=== PATIENT | male | born 1950 | race Caucasian/White ===

== ENCOUNTER 2017-04-26 07:44 | Day surgery (SDC) | payer MEDICARE ==
[~2017-04-26 07:44] MED LIST: ACETAMINOPHEN 325 MG TAB PO; MIDAZOLAM INJ 2 MG/2 ML VIAL (J2250) As Ordered; PROPARACAINE 0.5% OPHTH SOL 15ML OD; fentaNYL 100 MCG/2 ML INJECTION (J3010) As Ordered
[2017-04-26] MEDS: OFLOXACIN 0.3 % (OCUFLOX) OPTH SOL 5ML OD (08:30)
[2017-04-26] MEDS: PHENYLEPHRINE HCL 10 % OPHTH. SOL 5ML OD (08:30)
[2017-04-26] MEDS: CYCLOPENTOLATE 2% OPHTH SOLN 2ML BTL OD (08:30)
[2017-04-26] MEDS: TROPICAMIDE 1% OPHTH SOLN 2ML OD (08:30)
[2017-04-26] MEDS: LIDOCAINE 3.5 % 1ML OPHTH TOPICAL GEL OU (08:30)
[2017-04-26] MEDS: HEALON DUET (HEALON 10MG/ML 0.55ML & HEALON ENDOCOAT 30MG/ML 0.85ML) As Ordered (09:08)
[2017-04-26] MEDS: LIDOCAINE 1% SDV 5 ML VIAL As Ordered (09:43)
[2017-04-26] MEDS: POVIDONE-IODINE 5% OPHTH PREP SOL 30ML As Ordered (09:43)
[2017-04-26] MEDS: ACETYLCHOLINE OPHTH SOLN 1% 2ML (MIOCHOL-E) As Ordered (09:51)
[2017-04-26] MEDS: CEFUROXIME 1MG/0.1ML INTRACAMERAL INJ As Ordered (09:51)
[2017-04-26] MEDS: BALANCED SALT IRRIGATION SOLUTION 500ML BAG (FOR OR EYE MACHINE) As Ordered (09:51)
[2017-04-26] MEDS: AcetaZOLAMIDE 500 MG ER CAP PO (10:45)
[2017-04-26] MEDS ORDERED: TRIMETHOBENZAMIDE 300 MG CAP PO (10:45)
[2017-04-26] MEDS: KETOROLAC 0.5% OPHTH SOLN OD (10:45)
== END 2017-04-26 11:05 | disposition home or self-care (01) ==
LOC: M SDC 07:44
DX: H25.12 Age-related nuclear cataract, left eye (principal); I10 Essential (primary) hypertension; E78.00 Pure hypercholesterolemia, unspecified; R29.898 Other symptoms and signs involving the musculoskeletal system; M12.9 Arthropathy, unspecified; Z88.8 Allergy status to other drugs, medicaments and biological substances; Z79.899 Other long term (current) drug therapy; Z79.82 Long term (current) use of aspirin; Z87.39 Personal history of other diseases of the musculoskeletal system and connective tissue; Z95.4 Presence of other heart-valve replacement
CPT/HCPCS: 66984

== ENCOUNTER 2021-11-22 23:50 | Emergency (ER) | payer BC, MEDICARE ==
[~2021-11-22] VITALS: Ht 162.6 cm; Wt 100.9 kg
[~2021-11-22 23:50] MED LIST changes: -ACETAMINOPHEN 325 MG TAB PO; +ASPI81TA86 PO; +EZET10TA21 PO; +FISH100049 PO; +LISI40TA4 PO; +METO1TAB87 PO; -MIDAZOLAM INJ 2 MG/2 ML VIAL (J2250) As Ordered; +PHEN30TA46 PO; -PROPARACAINE 0.5% OPHTH SOL 15ML OD; +RED600TA PO; -fentaNYL 100 MCG/2 ML INJECTION (J3010) As Ordered
[2021-11-23] MEDS ORDERED: FURO40TA2 (00:01)
[2021-11-23] MEDS ORDERED: AMLO1TAB24 (00:01)
[2021-11-23] MEDS ORDERED: POTA1TAB23 (00:01)
[2021-11-23] MEDS ORDERED: GI COCKTAIL 50ML BTL(HYOSCYAMINE/MAALOX/LIDOCAINE VISCOUS)(1:3:1) PO ONE (00:30)
[2021-11-23] MEDS ORDERED: ASPIRIN 81 MG CHEW TABLET PO ONE (00:30)
[2021-11-23 00:40] LABS: BASO # 0.1 10^3/uL (0.0-0.2); EOS # 0.3 10^3/uL (0.0-0.5); EOS % 3.7 % (0.0-3.0); HEMATOCRIT 45.1 % (42.0-52.0); HEMOGLOBIN 15.1 g/dl (13.5-17.5); LYMPH # 2.7 10^3/uL (1.5-5.0); MEAN CORPUSCULAR HEMOGLOBIN 30.1 pg (27.0-33.0); MEAN CORPUSCULAR HGB CONC 33.5 g/dl (32.0-36.5); MEAN CORPUSCULAR VOLUME 89.8 fl (80.0-96.0); MONO % 11.4 % (2.0-8.0); NEUTROPHILS # 4.3 10^3/uL (1.5-8.5); NEUTROPHILS % 51.5 % (36.0-66.0); PLATELET COUNT, AUTOMATED 161 10^3/uL (150-450); RED BLOOD COUNT 5.02 10^6/uL (4.30-6.10); WHITE BLOOD COUNT 8.3 10^3/uL (4.0-10.0)
[2021-11-23 01:07] LABS: BLOOD UREA NITROGEN 19 MG/DL (7-18); CALCIUM LEVEL 9.2 MG/DL (8.8-10.2); CARBON DIOXIDE LEVEL 29 MEQ/L (21-32); CHLORIDE LEVEL 103 MEQ/L (98-107); CREATININE FOR GFR 1.07 MG/DL (0.70-1.30); GLOMERULAR FILTRATION RATE > 60.0 (>42); GLUCOSE, FASTING 113 MG/DL (70-100); POTASSIUM SERUM 4.2 MEQ/L (3.5-5.1); SODIUM LEVEL 137 MEQ/L (136-145)
[2021-11-23 01:11] LABS: CK-MB VALUE MASS 1.8 NG/ML (<3.6); MB/CK RELATIVE INDEX 0.99 (< OR =4)
[2021-11-23 02:29] LABS: ALBUMIN 3.4 GM/DL (3.2-5.2); ALT/SGPT 31 U/L (12-78); BILIRUBIN,DIRECT < 0.1 MG/DL (0.0-0.2); BILIRUBIN,TOTAL 0.2 MG/DL (0.2-1.0); CK-MB VALUE MASS 1.8 NG/ML (<3.6); LIPASE 117 U/L (73-393); MB/CK RELATIVE INDEX 1.09 (< OR =4); TOTAL PROTEIN 7.2 GM/DL (6.4-8.2)
[2021-11-23 02:30] VITALS: BP 126/63
[2021-11-23] MEDS ORDERED: OMEP40CA4 PO (03:34)
== END 2021-11-23 03:49 | disposition home or self-care (01) ==
LOC: M ED 23:50
DX: K21.9 Gastro-esophageal reflux disease without esophagitis (principal); G40.89 Other seizures; I51.9 Heart disease, unspecified; F10.10 Alcohol abuse, uncomplicated; Z88.8 Allergy status to other drugs, medicaments and biological substances; Z79.82 Long term (current) use of aspirin; Z79.899 Other long term (current) drug therapy